=== PATIENT | female | born 1985 | race Hispanic/Latino ===

== ENCOUNTER 2018-01-13 06:21 | Emergency (ER) | payer OTHER ==
[2018-01-13 06:22] VITALS: BMI 21.6
[2018-01-13 06:44] VITALS: O2SAT 100
[2018-01-13] MEDS ORDERED: Lidocaine 1% PF (5ml) Amp INJ STA (07:30)
[2018-01-13] MEDS ORDERED: Lidocaine 1% Inj (20ml) ONE (07:38)
--- NOTE | 2018-01-13 07:44 | ED PDOC ---
HPI: Female Pain <Va Horan PA-C - Last Filed: 01/15/18 15:33> Chief Complaint (Provider): Female Genitourinary History Per: Patient History/Exam Limitations: no limitations Onset/Duration Of Symptoms: Days Current Symptoms Are (Timing): Still Present Associated Symptoms: denies: Fever, Nausea, Vomiting, Diarrhea, Urinary Symptoms Additional Complaint(s): Leonor Chery is a 32 year old female with no past medical history, who is presenting to the ER with complains of vaginal pain associated with a Bartholin' s cyst, onset around 5 days ago. Patient reports that she was in the ER on January 09, where two incisions were made into cyst, and only blood was aspirated. She states that on the she again visited ER with similar complaints of pain. Patient reports taking Tramadol and Bactrim this morning for pain with no relief of symptoms. She denies any fevers, nausea, vomiting, diarrhea, or urinary symptoms. Patient offers no other medical complains at this time. PMD: none provided <Lidia Lange - Last Filed: 01/16/18 22:41> Time Seen by Provider: 01/13/18 07:05 Chief Complaint (Nursing): Female Genitourinary Past Medical History Vital Signs: Last Vital Signs Temp 97.8 F 01/13/18 11:10 Pulse 87 01/13/18 11:10 Resp 18 01/13/18 11:10 BP 122/67 01/13/18 11:10 Pulse Ox 100 01/13/18 11:10 <Va Horan PA-C - Last Filed: 01/15/18 15:33> Reviewed: Historical Data, Nursing Documentation, Vital Signs Vital Signs: Last Vital Signs Temp 99.3 F 01/13/18 06:39 Pulse 84 01/13/18 06:39 Resp 16 01/13/18 06:39 BP 102/66 01/13/18 06:39 Pulse Ox 100 01/13/18 06:39 - Medical History PMH: No Chronic Diseases - Surgical History Surgical History: Appendectomy - Family History Family History: States: Unknown Family Hx - Immunization History Hx Tetanus Toxoid Vaccination: Yes Hx Influenza Vaccination: No Hx Pneumococcal Vaccination: Yes <Lidia Lange - Last Filed: 01/16/18 22:41> - Home Medications Home Medications: Ambulatory Orders Medication Instructions Recorded Ibuprofen [Motrin] 600 mg PO TID #15 tab 01/09/18 Sulfamethoxazole/Trimethoprim 1 tab PO BID #10 tab 01/11/18 [Bactrim DS 800 mg-160 mg] traMADol [Ultram] 50 mg PO Q8 PRN #12 tab 01/11/18 - Allergies Allergies/Adverse Reactions: Allergies Allergy/AdvReac Type Severity Reaction Status Date / Time latex Allergy RASH Verified 01/13/18 06:39 Review of Systems ROS Statement: Except As Marked, All Systems Reviewed And Found Negative Constitutional: Negative for: Fever Gastrointestinal: Negative for: Nausea, Vomiting, Diarrhea Genitourinary Female: Positive for: Other (vaginal pain). Negative for: Dysuria , Incontinence <Lidia Lange - Last Filed: 01/16/18 22:41> Physical Exam - Reviewed Nursing Documentation Reviewed: Yes Vital Signs Reviewed: Yes - Physical Exam Appears: Positive for: Non-toxic. Negative for: No Acute Distress (moderate distress) Head Exam: Positive for: ATRAUMATIC, NORMAL INSPECTION, NORMOCEPHALIC Skin: Positive for: Normal Color, Warm, Dry Eye Exam: Positive for: EOMI, Normal appearance, PERRL Neck: Positive for: Normal, Painless ROM, Supple Cardiovascular/Chest: Positive for: Regular Rate, Rhythm. Negative for: Murmur Respiratory: Positive for: Normal Breath Sounds. Negative for: Respiratory Distress Gastrointestinal/Abdominal: Positive for: Normal Exam, Soft. Negative for: Tenderness Pelvic Exam: Positive for: Other (5x2 cm area fluctuance to left labia major with tenderness, Bartholin's abscess) Back: Positive for: Normal Inspection. Negative for: L CVA Tenderness, R CVA Tenderness, Vertebral Tenderness Extremity: Positive for: Normal ROM. Negative for: Pedal Edema, Deformity Neurologic/Psych: Positive for: Alert, Oriented. Negative for: Motor/Sensory Deficits <Lidia Lange - Last Filed: 01/16/18 22:41> - Laboratory Results Result Diagrams: 01/13/18 10:00 <Va Horan PA-C - Last Filed: 01/15/18 15:33> - Laboratory Results Result Diagrams: 01/13/18 10:00 - ECG O2 Sat by Pulse Oximetry: 100 (RA) Pulse Ox Interpretation: Normal <NazarioLidia Higginbotham - Last Filed: 01/16/18 22:41> Medical Decision Making Medical Decision Making: Wound cx +E coli, sensitive to bactrim. Pt called, states that she is on bactrim at this time. <Va Horan PA-C - Last Filed: 01/15/18 15:33> Medical Decision Making: Time: 7:30 Plan: -- Lidocaine 5 ml INJ --Morphine 2 mg IV --Chlamydia/GC RNA TMA --Wound Culture 7:[address] Aldrich. Spoke to doctor about incision and drainage, and Dr. Aldrich states he will brief incoming physician about case. Scribe Attestation: Documented by Kimberly Guerrero, acting as a scribe for Lidia Lange MD. Provider Scribe Attestation: All medical record entries made by the Scribe were at my direction and personally dictated by me. I have reviewed the chart and agree that the record accurately reflects my personal performance of the history, physical exam, medical decision making, and the department course for this patient. I have also personally directed, reviewed, and agree with the discharge instructions and disposition. <Lidia Lange - Last Filed: 01/16/18 22:41> Disposition <Va Horan PA-C - Last Filed: 01/15/18 15:33> - Disposition Disposition: Routine/Home Disposition Time: 11:03 <Lidia Lange - Last Filed: 01/16/18 22:41> - Clinical Impression Clinical Impression: Bartholin's gland abscess - Disposition Referrals: Lucila Álvarez MD [Staff Provider] - Condition: IMPROVED Instructions: Abscess Incision and Drainage (DC) Forms: [employer] (Panamanian) Print Language: CZECH
[2018-01-13] MEDS ORDERED: Povidone Iodine Oint 10% Foilpak UD ONE ×2 (09:11→09:14)
[2018-01-13 10:24] LABS: BASO % 0.3 % (0.0-2.0); EOS # 0.3 K/uL (0.0-0.7); HEMOGLOBIN 13.2 g/dL (12.0-16.0); MEAN CELL VOLUME 86.5 fl (81.0-99.0); MEAN CORPUSCULAR HEMOGLOBIN 28.5 pg (27.0-31.0); MEAN CORPUSCULAR HGB CONC 32.9 g/dL (33.0-37.0); MONO # 1.2 K/uL (0.0-0.8); MONO % 8.2 % (0.0-10.0); NEUT # 10.4 K/uL (1.8-7.0); NEUT % 69.5 % (50.0-75.0); NRBC % 0.1 % (0.0-0.0); RBC 4.64 Mil/uL (3.80-5.20); RED CELL DISTRIBUTION WIDTH 13.6 % (11.5-14.5); WHITE BLOOD COUNT 14.9 K/uL (4.8-10.8)
[2018-01-13 11:11] VITALS: BP 122/67; PULSE 87; RESP 18; TEMP 97.8
--- NOTE | 2018-01-13 14:32 | CON ---
DATE: EMERGENCY ROOM CONSULTATION HISTORY OF PRESENT ILLNESS: This is a 32-year-old G0, last menstrual period 12/20/2017, who reports that she started to have a Bartholin cyst on the left side, on 01/08/2018, started small and was mildly painful. The patient reports on Wednesday it became a lot more painful and she went to [facility] where an attempted drainage with two incisions was done. The patient reports only a little blood came out. The patient reports that now the abscess has become larger and a lot more painful. She reports that she went back to [facility] on 01/11/2018 and was prescribed Tramadol 50 mg every eight hours as needed and she was also given Bactrim DS twice a day for five days. The patient states she had Bartholin cyst on the same side about two years ago that was drained and had resolved. PAST MEDICAL HISTORY: Healthy. PAST SURGICAL HISTORY: Laparoscopic appendectomy around 2009 and breast augmentation in 2008. MEDICATIONS: As above. ALLERGIES: LATEX CAUSES RASH. FAMILY HISTORY: Noncontributory. SOCIAL HISTORY: The patient reports she smokes about two cigarettes a week. She drinks about three drinks once a week and she denies any illicit drug use. GYNECOLOGIC HISTORY: Menarche at 15, with regular periods. She denies any STDs or any abnormal Pap smears. PHYSICAL EXAMINATION/ PROCEDURE: The patient had a large left labium majus that was red and enlarged due to a Bartholin gland abscess. The Povidone iodine swab sticks were applied within the left labium,close to the vagina, to prepare the surgical site. About 2 mL of 1% lidocaine were infused into the area and then an 11 blade scalpel was used to incise the abscess with a 5 mm stab incision. The abscess started to drain a moderate amount of blood and pus from the incision site. A culture swab was sent of the abscess contents for microbiologic identification and for gonorrhea and chlamydia. A Liset syringe with sterile saline was placed within the opening of the incision and used to flush out the abscess. The balloon of the Word catheter was tested before it was used. The balloon tip device of the Word catheter was then placed through the incision. The catheter was then injected with 2 mL of sterile water and the end of the catheter was then placed in the vagina. The patient tolerated the procedure well. LABORATORY DATA: CBC is pending. ASSESSMENT AND PLAN: This is a 32-year-old G0, with a large painful left Bartholin abscess, which is now status post incision and drainage and Word catheter placement. An informed consent was obtained for the procedure. The patient was given a prescription, so that she takes a full seven days of Bactrim DS twice a day for seven days following this procedure. The patient has a prescription for Tramadol and was told to take Motrin as needed for pain as well. The patient was recommended to use sitz baths. She was also told not to put anything in the vagina and to use just pads for her upcoming period. The patient was also told to expect some drainage on to the pads in the next couple of days. The patient was told that it is recommended, if possible, that the Word catheter be kept in place for about four weeks. The patient was told to follow up in the office with me, Dr. Álvarez, at my [place] Office in about two to three weeks. Christopher Álvarez MD MTDGreg
== END 2018-01-13 11:12 | disposition home or self-care (01) ==
LOC: H.ER 06:21
DX: N75.1 Abscess of Bartholin's gland (principal); B96.20 Unspecified Escherichia coli [E. coli] as the cause of diseases classified elsewhere
CPT/HCPCS: 56420; 85025; 87070; 87181; 87491; 87591; 96374; 99284; J2270